=== PATIENT | female | born 1935 ===

== ENCOUNTER 2018-06-25 07:10 | Day surgery (SDC) | payer MEDICAID ==
[~2018-06-25 07:10] MED LIST: Cyclopentolate 1% Opth (2 ml) OD SCH; Ketorolac Tromethamine 0.5% Opth Soln (3 ml) OD SCH; Lactated Ringer's 500 ML IV ONE; Ofloxacin 0.3% Ophth Soln OD SCH; Phenylephrine 2.5% Opht Soln OD SCH; Tropicamide 0.5% Opht Sol OD SCH
[2018-06-25] MEDS ORDERED: Tobramycin/Dexamethasone (Tobradex) Opth Sol (2.5 ml) ONE (07:23)
[2018-06-25] MEDS ORDERED: Povidone Iodine Ophthalmic 5% Soln ONE (07:23)
[2018-06-25] MEDS ORDERED: Tetracaine 0.5% Ophth (OR ONLY) ONE (07:23)
[2018-06-25] MEDS ORDERED: Carbachol 0.01% IO ONE (07:23)
[2018-06-25] MEDS ORDERED: Lidocaine 2% MPF (5 ml) Inj ONE (07:24)
[2018-06-25] MEDS ORDERED: Tobramycin/Dexamethasone OPHT OINT ONE (07:24)
[2018-06-25] MEDS ORDERED: Chondroitin/Hyaluronate Opth Syringe KIT (0.55 ml-0.5 ml) IO ONE (07:25)
[2018-06-25] MEDS ORDERED: Hyaluronidase Human, Recombi 150 U/ML VIAL ONE (07:25)
[2018-06-25 07:31] VITALS: RESP 20
[2018-06-25] MEDS ORDERED: Lactated Ringer's 1,000 ML IV ONE (07:49)
[2018-06-25] MEDS ORDERED: Propofol 10 mg/ml Inj (20 ML) ONE (10:16)
[2018-06-25 12:42] VITALS: BP 127/65; PULSE 84; TEMP 98.1; O2SAT 98
--- NOTE | 2018-06-26 08:16 | OP ---
PROCEDURE DATE: 06/25/2018 PREOPERATIVE DIAGNOSIS: MATURE CATARACT, RIGHT EYE. POSTOPERATIVE DIAGNOSIS: MATURE CATARACT, RIGHT EYE. OPERATIVE PROCEDURE: CATARACT EXTRACTION WITH TRYPAN BLUE DYE, RIGHT EYE. ANESTHESIA TYPE: General. ANESTHESIOLOGIST: COMPLICATIONS: None. PROCEDURE: General anesthesia was easily induced. The patient was then prepped and draped in the usual sterile fashion for ophthalmic surgery. Betadine drops were placed into the eye. A lid speculum was used and a sideport incision was made using a 15 degree blade. Trypan blue dye was used to stain the anterior capsule. Viscoelastic was used to fill the anterior chamber and a 2.7 millimeter slit blade was used to create a surgical opening. Additional viscoelastic was placed into the eye and a capsulorrhexis was performed. Hydrodissection and delineation were then carried out. Phacoemulsification of the nucleus was performed with ease and cortical cleanup was achieved without difficulty. The capsular bag was refilled using viscoelastic and a posterior chamber lens was inserted through the existing wound and placed into the capsular bag and easily centered. All viscoelastic was then aspirated from the eye and Miochol was instilled for good symmetric pupillary constriction. The sideport wound was hydrated as necessary and a good watertight closure was observed at the conclusion of the case. A TobraDex soaked collagen shield was then placed over the eye. The lid speculum was removed. TobraDex ointment was placed onto the eye and a patch and shield were placed. The patient tolerated the procedure well. Nicolas Park MD
== END 2018-06-25 11:57 | disposition home or self-care (01) ==
LOC: C.SDS 07:10
PROVIDERS: ATTEND Ophthalmology
DX: H25.89 Other age-related cataract (principal)
CPT/HCPCS: 66984; J2704; J3470; J7120; V2632